=== PATIENT | male | born 1985 | race Caucasian/White ===

== ENCOUNTER 2022-11-25 06:41 | Inpatient (IN) | payer SELFPAY ==
[2022-11-25] MEDS ORDERED: Ketorolac Tromethamine 30 MG/ML VIAL ONE (07:16)
[2022-11-25] MEDS ORDERED: fentaNYL 50 mcg/mL 1 mL Vial ONE (07:16)
[2022-11-25 07:19] LABS: #Monocytes 1.4 thou/uL (0.11-0.59); #Neutrophils 17.3 thou/uL (1.40-6.50); %Basophils 0.2 % (0.0-1.0); %Lymphocytes 4.7 % (21.0-51.0); %Neutrophils 87.7 % (42.0-75.0); Hemoglobin 13.6 g/dL (14.0-18.0); Mean Corpuscular Hemoglobin 31.1 pg (27.0-31.0); Mean Corpuscular Volume 94.1 fl (78.0-98.0); Mean Platelet Volume 10.2 fL (7.4-10.4); Platelet Count 358 10x3/uL (130-400); RBC Distribution Width 13.8 % (11.5-14.5); Red Blood Cell (RBC) Count 4.38 mill/uL (4.70-6.10); White Blood Cell (WBC) Count 19.7 10x3/uL (4.8-10.8)
[2022-11-25 07:39] LABS: Anion Gap 18 mmol/L (10-20); BUN (Urea Nitrogen) 8 mg/dL (8.9-20.6); Calc. Creatinine Clearance 0 mL/min (70-130); Calcium 9.2 mg/dL (7.8-10.44); Carbon Dioxide 19 mmol/L (22-29); Chloride 104 mmol/L (98-107); Estimated GFR 101; Glucose 108 mg/dL (70-105); Potassium 3.9 mmol/L (3.5-5.1); Sodium 137 mmol/L (136-145)
[2022-11-25 07:47] LABS: INR-International Normal Ratio 2.4; Prothrombin Time 26.8 sec (12.0-14.7)
[2022-11-25 07:48] LABS: PTT 51.8 sec (22.9-36.1)
[2022-11-25] MEDS ORDERED: Clindamycin/D5W 300 MG in Premix Bag 1 BAG IVPB SCH (10:30)
[2022-11-25] MEDS ORDERED: Midazolam HCl 2 mg/2 ml Vial ONE (11:31)
[2022-11-25] MEDS ORDERED: fentaNYL PF 100 MCG/2 ML SYRINGE ONE ×3 (11:32→14:10)
[2022-11-25] MEDS ORDERED: HYDROmorphone 0.5 MG/0.5 ML SYRINGE ONE (11:32)
[2022-11-25] MEDS ORDERED: Lidocaine 4% Topical Sol 50 ML BOT ONE (11:32)
[2022-11-25] MEDS ORDERED: Lidocaine 2% 6 ML (Jelly) SYR ONE (11:32)
[2022-11-25] MEDS ORDERED: Oxymetazoline HCl 0.05% (30 ML BOT) ONE (11:32)
[2022-11-25] MEDS ORDERED: Chlorhexidine Gluconate 15 ML UDCUP SSP ONE (11:40)
[2022-11-25] MEDS ORDERED: Lidocaine 1% (PF) 30 ML VIAL ONE (11:40)
[2022-11-25] MEDS ORDERED: EPINEPHrine 1 MG/ML AMP ONE (11:40)
[2022-11-25] MEDS ORDERED: Bacitracin Zinc Ointment 30 gm TUBE ONE (11:40)
[2022-11-25] MEDS ORDERED: Clindamycin/D5W 600 mg/50 ml Premix Bag ONE (12:05)
[2022-11-25] MEDS ORDERED: Rocuronium Bromide 10 MG/ML (10ML VIAL) ONE (12:38)
[2022-11-25] MEDS ORDERED: Ondansetron PF 4 MG/2 ML Vial ONE (12:38)
[2022-11-25] MEDS ORDERED: Succinylcholine 200 MG/10 ml SYRINGE FS ONE (12:38)
[2022-11-25] MEDS ORDERED: NEOSTIGMINE 3 MG/3 ML SYR 3 MG/3 ML SYRINGE ONE (12:38)
[2022-11-25] MEDS ORDERED: Dexamethasone 20 MG/5 ML VIAL ONE (12:38)
[2022-11-25] MEDS ORDERED: PROPOFOL 200 MG/20 ML VIAL ONE (12:38)
[2022-11-25] MEDS ORDERED: Lidocaine 1% PF 5 ML VIAL ONE (12:38)
[2022-11-25] MEDS ORDERED: Glycopyrrolate 0.2 MG/ML 5 ML SYRINGE ONE (12:38)
[2022-11-25] MEDS ORDERED: Ondansetron HCl/PF 4 MG/2 ML Vial IVP PRN (13:43)
[2022-11-25] MEDS ORDERED: Promethazine HCl 25 MG/ML VIAL IM PRN (13:43)
[2022-11-25] MEDS ORDERED: Ondansetron PF 4 MG/2 ML Vial IVP PRN (14:27)
[2022-11-25] MEDS: Ampicillin/Sulbactam 3 GM in Sodium Chloride 0.9% 100 ML IVPB SCH ×4 (16:16→20:34)
[2022-11-25] MEDS: D5 0.9% NS w/ 20 mEq KCl 1,000 ML IV SCH (16:16)
[2022-11-25] MEDS: Ibuprofen 800 MG TAB PO SCH ×2 (16:19→20:34)
[2022-11-25] MEDS: Chlorhexidine Gluconate 15 ML UDCUP SSP SCH ×2 (16:40→20:34)
[2022-11-25] MEDS: HYDROcodone/Acetaminophen 5/325 mg Tablet PO PRN (16:42)
[2022-11-25 19:54] VITALS: BMI 31.4
[2022-11-26] MEDS: Ibuprofen 800 MG TAB PO SCH ×4 (03:31→20:22)
[2022-11-26] MEDS: Ampicillin/Sulbactam 3 GM in Sodium Chloride 0.9% 100 ML IVPB SCH ×4 (03:32→20:22)
[2022-11-26] MEDS: D5 0.9% NS w/ 20 mEq KCl 1,000 ML IV SCH ×3 (03:32→20:22)
[2022-11-26 04:39] LABS: #Monocytes 1.7 thou/uL (0.11-0.59); #Neutrophils 15.1 thou/uL (1.40-6.50); %Basophils 0.1 % (0.0-1.0); %Lymphocytes 8.3 % (21.0-51.0); %Monocytes 8.9 % (0.0-10.0); Hemoglobin 13.1 g/dL (14.0-18.0); Mean Corpuscular HGB CONC 33.2 g/dL (32.0-36.0); Mean Corpuscular Hemoglobin 31.1 pg (27.0-31.0); Mean Corpuscular Volume 93.6 fl (78.0-98.0); Mean Platelet Volume 10.3 fL (7.4-10.4); Platelet Count 330 10x3/uL (130-400); RBC Distribution Width 13.9 % (11.5-14.5); Red Blood Cell (RBC) Count 4.21 mill/uL (4.70-6.10); White Blood Cell (WBC) Count 18.5 10x3/uL (4.8-10.8)
[2022-11-26] MEDS: HYDROcodone/Acetaminophen 5/325 mg Tablet PO PRN ×2 (06:33→21:15)
[2022-11-26] MEDS: Chlorhexidine Gluconate 15 ML UDCUP SSP SCH ×3 (08:35→20:22)
[2022-11-26] MEDS: Morphine 2 MG/ML VIAL SLOW IVP PRN ×2 (18:05→22:41)
[2022-11-27] MEDS: Ampicillin/Sulbactam 3 GM in Sodium Chloride 0.9% 100 ML IVPB SCH ×4 (02:16→19:25)
[2022-11-27] MEDS: Ibuprofen 800 MG TAB PO SCH ×4 (02:17→19:25)
[2022-11-27 04:55] LABS: #Basophils 0.1 thou/uL (0.0-0.2); #Eosinphils 0.1 thou/uL (0.0-0.7); #Monocytes 0.7 thou/uL (0.11-0.59); #Neutrophils 5.8 thou/uL (1.40-6.50); %Basophils 0.7 % (0.0-1.0); %Lymphocytes 31.3 % (21.0-51.0); %Monocytes 7.3 % (0.0-10.0); %Neutrophils 59.1 % (42.0-75.0); Hemoglobin 12.3 g/dL (14.0-18.0); Mean Corpuscular HGB CONC 33.2 g/dL (32.0-36.0); Mean Corpuscular Hemoglobin 31.1 pg (27.0-31.0); Mean Corpuscular Volume 93.9 fl (78.0-98.0); Mean Platelet Volume 10.4 fL (7.4-10.4); Platelet Count 371 10x3/uL (130-400); RBC Distribution Width 14.3 % (11.5-14.5); Red Blood Cell (RBC) Count 3.95 mill/uL (4.70-6.10); White Blood Cell (WBC) Count 9.8 10x3/uL (4.8-10.8)
[2022-11-27] MEDS: Morphine 2 MG/ML VIAL SLOW IVP PRN (06:19)
[2022-11-27] MEDS: Chlorhexidine Gluconate 15 ML UDCUP SSP SCH ×3 (10:06→19:25)
[2022-11-27] MEDS: HYDROcodone/Acetaminophen 5/325 mg Tablet PO PRN ×2 (10:10→17:45)
[2022-11-27] MEDS: D5 0.9% NS w/ 20 mEq KCl 1,000 ML IV SCH (17:08)
[2022-11-28] MEDS: D5 0.9% NS w/ 20 mEq KCl 1,000 ML IV SCH ×2 (00:36→09:35)
[2022-11-28] MEDS: HYDROcodone/Acetaminophen 5/325 mg Tablet PO PRN ×3 (00:45→13:30)
[2022-11-28] MEDS: Ampicillin/Sulbactam 3 GM in Sodium Chloride 0.9% 100 ML IVPB SCH ×3 (03:16→16:27)
[2022-11-28] MEDS: Ibuprofen 800 MG TAB PO SCH ×3 (03:16→16:26)
[2022-11-28] MEDS: Chlorhexidine Gluconate 15 ML UDCUP SSP SCH ×2 (07:26→16:27)
[2022-11-28 16:17] VITALS: BP 119/75; TEMP 98
== END 2022-11-28 16:39 | disposition home or self-care (01) | DRG 144 ==
LOC: ERS 06:41 → EDBD 06:41 → SDC 11:27 → SJJU 11:33 → OBSVTOIN 11-26 16:59
PROVIDERS: ADMIT Otolaryngology Plastic Surgery within the Head & Neck; ATTEND Otolaryngology Plastic Surgery within the Head & Neck
PROC: 0CDXXZ0 Extraction of Lower Tooth, Single, External Approach (ICD-10-PCS; principal; 2022-11-25)
PROC: 0K9 Muscles, Drainage (ICD-10-PCS; 2022-11-25)
DX: K04.1 Necrosis of pulp (principal); J39.0 Retropharyngeal and parapharyngeal abscess; L02.11 Cutaneous abscess of neck; K12.2 Cellulitis and abscess of mouth; K04.7 Periapical abscess without sinus; Z87.891 Personal history of nicotine dependence
CPT/HCPCS: 36415; 80048; 83605; 85025; 85610; 85730; 86850; 86900; 86901; 87070; 87205; 96366; 96376; 99284; G0378; J0171; J0295; J1100; J1170; J1885; J2001; J2250; J2272; J2405; J2704; J3010; J3480; J3490